=== PATIENT | female | born 1990 | race Two or more races ===

== ENCOUNTER 2018-06-16 13:44 | Outpatient (CLI) | payer OTHER | END 2018-06-16 13:45 | disposition home or self-care (01) | LOC: SC 13:44 | PROVIDERS: ATTEND Internal Medicine Pulmonary Disease | DX: G47.10 Hypersomnia, unspecified (principal) | CPT/HCPCS: 99203; 99212 ==

== ENCOUNTER 2019-06-09 13:43 | Emergency (ER) | payer OTHER ==
--- NOTE | 2019-06-09 14:51 | XRAY Report ---
Reason: trauma Procedure Date: 06/09/2019 Accession Number: [id number] / [id number] Procedure: XR - Wrist 3 View LT CPT Code: FULL RESULT: EXAM: LEFT WRIST RADIOGRAPHY EXAM DATE: 06/09/2019 02:37 PM. CLINICAL HISTORY: Trauma. COMPARISON: None. TECHNIQUE: 3 views. FINDINGS: Bones: No fractures or bone lesions. Joints: Unremarkable. Soft Tissues: Unremarkable. IMPRESSION: 1. No acute osseous abnormality. If there is snuff box tenderness, or clinical suspicion of radiographically occult scaphoid fracture, immobilization with repeat radiograph in 7-10 days, or alternatively MR, is recommended. RADIA
--- NOTE | 2019-06-09 15:19 | XRAY Report ---
Reason: trauma Procedure Date: 06/09/2019 Accession Number: [id number] / [id number] Procedure: XR - Knee 3 View LT CPT Code: FULL RESULT: EXAM: LEFT KNEE RADIOGRAPHY EXAM DATE: 06/09/2019 02:40 PM. CLINICAL HISTORY: Trauma. COMPARISON: None. TECHNIQUE: 3 views. FINDINGS: Bones: No fractures or bone lesions. Joints: Unremarkable. Soft Tissues: Unremarkable. IMPRESSION: 1. No acute osseous abnormality. RADIA
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
[2019-06-09] MEDS ORDERED: ACETAMINOPHEN 325 MG TABLET PO STA (15:55)
--- NOTE | 2019-06-09 16:48 | XRAY Report ---
Reason: lower anterior calf pain Procedure Date: 06/09/2019 Accession Number: [id number] / [id number] Procedure: XR - Tib/Fib LT CPT Code: FULL RESULT: EXAM: LEFT TIBIA/FIBULA RADIOGRAPHY EXAM DATE: 06/09/2019 03:08 PM. CLINICAL HISTORY: Lower anterior calf pain. COMPARISON: None. TECHNIQUE: 2 views. FINDINGS: Bones: Normal. No fracture or bone lesion. Joints: The visualized knee and ankle joints are normal. No effusions. Soft Tissues: Unremarkable. IMPRESSION: Normal tibia/fibula radiography. RADIA
[2019-06-09 17:15] VITALS: BP 101/66
== END 2019-06-09 17:18 | disposition home or self-care (01) ==
LOC: ED 13:43
DX: S60.012A Contusion of left thumb without damage to nail, initial encounter (principal); S60.222A Contusion of left hand, initial encounter; S80.02XA Contusion of left knee, initial encounter; S80.12XA Contusion of left lower leg, initial encounter; V28.2XXA Unspecified motorcycle rider injured in noncollision transport accident in nontraffic accident, initial encounter; Y93.89 Activity, other specified
CPT/HCPCS: 73110; 73562; 73590; 99282; 99284; A9270

== ENCOUNTER 2019-07-29 11:49 | Emergency (ER) | payer OTHER ==
[2019-07-29] MEDS ORDERED: SODIUM CHLORIDE 0.9% 1,000 ML IV ONE (12:15)
[2019-07-29] MEDS ORDERED: ONDANSETRON 4 MG/2 ML VIAL IVP STA ×2 (12:15→12:48)
--- NOTE | 2019-07-29 12:16 | ED Physician Documentation ---
PD HPI ABD PAIN - Stated complaint Stated Complaint: ABD PAIN - Chief complaint Chief Complaint: Abd Pain - History obtained from History obtained from: Patient - History of Present Illness Timing - onset: Today (28-year-old woman, active duty in the [employer]. She was in physical therapy for her shoulder this morning and developed lower abdominal pain and feeling of having to have a bowel movement. Subsequently she had a bowel movement and the pain improved but did not resolve. She is nauseous with it. Denies any bloody stools. Last menses was about July 01 and she is due. She is sexually active. She had chlamydia last month which was treated.) Review of Systems Ten Systems: 10 systems reviewed and negative Constitutional: denies: Fever, Chills Cardiac: denies: Chest pain / pressure, Palpitations Respiratory: denies: Dyspnea, Cough PD PAST MEDICAL HISTORY - Past Surgical History Ortho: Other - Present Medications Home Medications: Ambulatory Orders Medication Instructions Recorded Confirmed Hydrocodone/Acetaminophen 1 - 2 each PO Q6H PRN #7 tablet 07/29/19 [Hydrocodon-Acetaminophen 5-325] Ibuprofen [Motrin] 800 mg PO Q8H PRN #10 tablet 07/29/19 - Allergies Allergies/Adverse Reactions: Allergies Allergy/AdvReac Type Severity Reaction Status Date / Time No Known Drug Allergies Allergy Verified 06/09/19 13:48 - Social History Does the pt smoke?: No Smoking Status: Never smoker Does the pt drink ETOH?: Yes Does the pt have substance abuse?: No - Immunizations Immunizations are current?: Yes PD ED PE NORMAL - Vitals Vital signs reviewed: Yes - General General: Alert and oriented X 3, No acute distress - Cardiac Cardiac: RRR, No murmur - Respiratory Respiratory: No respiratory distress, Clear bilaterally - Abdomen Abdomen: Normal bowel sounds, Soft, Other (Tender in the left greater than right pelvis) - Back Back: No CVA TTP, No spinal TTP - Derm Derm: Normal color, Warm and dry - Extremities Extremities: No edema, No calf tenderness / cord - Neuro Neuro: Alert and oriented X 3, Normal speech Results - Vitals Vitals: Vital Signs - 24 hr 07/29/19 11:57 Temperature 36.5 C Heart Rate 79 Respiratory 18 Rate Blood Pressure 117/67 O2 Saturation 98 Oxygen O2 Source Room air - Labs Labs: Laboratory Tests 07/29/19 07/29/19 07/29/19 12:25 12:25 12:48 WBC 8.0 RBC 3.98 L Hgb 11.7 L Hct 37.5 MCV 94.2 MCH 29.4 MCHC 31.2 L RDW 11.5 L Plt Count 245 MPV 10.0 Neut # (Auto) 6.6 Lymph # (Auto) 0.8 L [place] # (Auto) 0.5 Eos # (Auto) 0.0 Baso # (Auto) 0.0 Absolute Nucleated RBC 0.00 Nucleated RBC % 0.0 Sodium 138 Potassium 3.9 Chloride 108 Carbon Dioxide 21 Anion Gap 9.0 BUN 15 Creatinine 0.8 Estimated GFR (MDRD) 102 Glucose 100 Calcium 8.9 Total Bilirubin 2.1 H AST 20 ALT 12 Alkaline Phosphatase 32 L Total Protein 7.4 Albumin 4.3 Globulin 3.1 Albumin/Globulin Ratio 1.4 Lipase 33 Urine Color DARK YELLOW Urine Clarity CLOUDY Urine pH 6.0 Ur Specific [place] 1.025 Urine Protein 30 H Urine Glucose (UA) NEGATIVE Urine Ketones 15 H Urine Occult Blood LARGE H Urine Nitrite NEGATIVE Urine Bilirubin SMALL H Urine Urobilinogen 0.2 (NORMAL) Ur Leukocyte Esterase NEGATIVE Urine RBC TNTC H Urine WBC 4-5 Ur Squamous Epith Cells MOD Squamous H Urine Bacteria Few Urine Mucus Few Strands Ur Microscopic Review INDICATED Urine Culture Comments NOT INDICATED Urine HCG, Qual NEGATIVE PD MEDICAL DECISION MAKING - ED course ED course: 28-year-old woman who is due for her menses presents with pelvic pain and cramping starting today. On repeat examination at 1:30 PM she was nontender. Labs are reassuring. Departure - Departure Disposition: 01 Home, Self Care Clinical Impression: Abdominal pain Condition: Good Record reviewed to determine appropriate education?: Yes Instructions: ED Abdominal Pain Appendx Poss Prescriptions: Hydrocodone/Acetaminophen [Hydrocodon-Acetaminophen 5-325] 1 - 2 each PO Q6H PRN #7 tablet PRN Reason: pain Ibuprofen [Motrin] 800 mg PO Q8H PRN #10 tablet PRN Reason: PAIN &/OR FEVER Comments: Return in 24 hours if not better, anytime if worse or if new symptoms develop. Forms: Activity restrictions
[2019-07-29 12:35] LABS: BASOPHILS % (AUTO) 0.3 %; EOSINOPHILS % (AUTO) 0.1 %; HGB - HEMOGLOBIN 11.7 g/dL (12.0-16.0); LYMPHOCYTES # (AUTO) 0.8 10^3/uL (1.5-3.5); LYMPHOCYTES % (AUTO) 10.5 %; MEAN CORPUSCULAR HEMOGLOBIN 29.4 pg (27.0-31.0); MEAN CORPUSCULAR HGB CONC 31.2 g/dL (32.0-36.0); MEAN CORPUSCULAR VOLUME 94.2 fL (81.0-99.0); MONOCYTES # (AUTO) 0.5 10^3/uL (0.0-1.0); MONOCYTES % (AUTO) 6.5 %; NEUTROPHILS # (AUTO) 6.6 10^3/uL (1.5-6.6); NEUTROPHILS % (AUTO) 82.2 %; PLT - PLATELET COUNT 245 10^3/uL (130-450); RED BLOOD COUNT 3.98 10^6/uL (4.20-5.40); RED CELL DISTRIBUTION WIDTH 11.5 % (12.0-15.0)
[2019-07-29] MEDS ORDERED: MORPHINE 2 MG/ML CARPUJECT IVP STA (12:48)
[2019-07-29 12:55] LABS: ALBUMIN 4.3 g/dL (3.2-5.5); ALBUMIN/GLOBULIN RATIO 1.4 (1.0-2.2); BILIRUBIN,TOTAL 2.1 mg/dL (0.2-1.0); CALCIUM 8.9 mg/dL (8.5-10.3); CREATININE 0.8 mg/dL (0.4-1.0); TOTAL PROTEIN 7.4 g/dL (6.7-8.2)
[2019-07-29 13:15] LABS: GLUCOSE, URINE (UA) NEGATIVE (NEGATIVE); KETONES,URINE (UA) 15 mg/dL (NEGATIVE); LEUKOCYTE ESTERASE, URINE NEGATIVE (NEGATIVE); NITRITE,URINE NEGATIVE (NEGATIVE); OCCULT BLOOD,URINE LARGE (NEGATIVE); PROTEIN,URINE 30 mg/dL (NEGATIVE); UROBILINOGEN,URINE 0.2 (NORMAL) E.U./dL (NORMAL)
[2019-07-29 13:20] LABS: BILIRUBIN,URINE SMALL (NEGATIVE); CLARITY,URINE CLOUDY (CLEAR); HCG UR QUAL NEGATIVE; ICTOTEST,URINE POSITIVE
[2019-07-29 13:25] LABS: BACTERIA,URINE Few /HPF (None Seen); MUCUS,URINE Few Strands; RBC,URINE TNTC /HPF (0-5); SQUAMOUS EPITHELIAL CELL,UR MOD Squamous (<= Few)
[2019-07-29 13:49] VITALS: BP 121/68
[2019-07-29 21:34] LABS: TRICHOMONAS VAGINALIS DNA NEGATIVE (NEGATIVE)
== END 2019-07-29 13:50 | disposition home or self-care (01) ==
LOC: EDUNIT# → ED 11:49
DX: R10.30 Lower abdominal pain, unspecified (principal)
CPT/HCPCS: 36415; 80053; 81001; 81003; 81025; 83690; 85025; 87086; 87491; 87591; 87661; 96374; 96375; 99284

== ENCOUNTER 2019-07-31 12:13 | Emergency (ER) | payer OTHER ==
[2019-07-31 13:25] LABS: BASOPHILS % (AUTO) 0.5 %; EOSINOPHILS % (AUTO) 0.5 %; HGB - HEMOGLOBIN 11.6 g/dL (12.0-16.0); LYMPHOCYTES # (AUTO) 1.2 10^3/uL (1.5-3.5); LYMPHOCYTES % (AUTO) 28.5 %; MEAN CORPUSCULAR HEMOGLOBIN 29.1 pg (27.0-31.0); MEAN CORPUSCULAR HGB CONC 31.2 g/dL (32.0-36.0); MEAN CORPUSCULAR VOLUME 93.2 fL (81.0-99.0); MEAN PLATELET VOLUME 9.6 fL (7.9-10.8); MONOCYTES # (AUTO) 0.4 10^3/uL (0.0-1.0); MONOCYTES % (AUTO) 9.3 %; NEUTROPHILS # (AUTO) 2.6 10^3/uL (1.5-6.6); PLT - PLATELET COUNT 293 10^3/uL (130-450); RED BLOOD COUNT 3.99 10^6/uL (4.20-5.40); RED CELL DISTRIBUTION WIDTH 11.6 % (12.0-15.0); WHITE BLOOD COUNT 4.2 x10^3/uL (4.8-10.8)
[2019-07-31 13:46] LABS: ALBUMIN 4.5 g/dL (3.2-5.5); ALBUMIN/GLOBULIN RATIO 1.5 (1.0-2.2); CREATININE 0.8 mg/dL (0.4-1.0); TOTAL PROTEIN 7.5 g/dL (6.7-8.2)
[2019-07-31 14:47] LABS: BILIRUBIN,URINE NEGATIVE (NEGATIVE); GLUCOSE, URINE (UA) NEGATIVE (NEGATIVE); KETONES,URINE (UA) NEGATIVE (NEGATIVE); LEUKOCYTE ESTERASE, URINE NEGATIVE (NEGATIVE); NITRITE,URINE NEGATIVE (NEGATIVE); OCCULT BLOOD,URINE LARGE (NEGATIVE); PH,URINE 6.5 PH (5.0-7.5); PROTEIN,URINE NEGATIVE (NEGATIVE); UROBILINOGEN,URINE 1 (NORMAL) E.U./dL (NORMAL)
[2019-07-31 15:17] LABS: CLARITY,URINE CLEAR (CLEAR); HCG UR QUAL NEGATIVE
[2019-07-31 15:18] LABS: BACTERIA,URINE Rare /HPF (None Seen); MUCUS,URINE Few Strands; RBC,URINE TNTC /HPF (0-5); SQUAMOUS EPITHELIAL CELL,UR FEW Squamous (<= Few)
--- NOTE | 2019-07-31 15:55 | ED Physician Documentation ---
History of Present Illness - Stated complaint Stated Complaint: abd pain - Chief complaint Chief Complaint: Abd Pain - Additonal information Additional information: This is a 28-year-old female who presents with some abdominal discomfort. Polina ent last week has had some bilateral lower abdominal cramping which has been somewhat waxing and waning. She was seen last week and had a reportedly unremarkable work-up, she was sent home and told to come back if things are not worsening. Today she been having some more cramping. She also has had some continued vaginal bleeding which she states is a start of her period. She did have an STI which was treated successfully a month ago. She denies vaginal itching or burning. No upper abdominal discomfort, no vomiting. She has been able to eat. No dysuria. Review of Systems Constitutional: denies: Fever Cardiac: denies: Chest pain / pressure Respiratory: denies: Dyspnea GI: reports: Abdominal Pain : denies: Dysuria Skin: denies: Rash Neurologic: denies: Generalized weakness Immunocompromised: denies: Immunocompromised PD PAST MEDICAL HISTORY - Past Surgical History Ortho: Other - Present Medications Home Medications: Ambulatory Orders Medication Instructions Recorded Confirmed Hydrocodone/Acetaminophen 1 - 2 each PO Q6H PRN #7 tablet 07/29/19 [Hydrocodon-Acetaminophen 5-325] Ibuprofen [Motrin] 800 mg PO Q8H PRN #10 tablet 07/29/19 - Allergies Allergies/Adverse Reactions: Allergies Allergy/AdvReac Type Severity Reaction Status Date / Time No Known Drug Allergies Allergy Verified 07/31/19 12:19 - Social History Does the pt smoke?: No Smoking Status: Never smoker Does the pt drink ETOH?: Yes Does the pt have substance abuse?: No - Immunizations Immunizations are current?: Yes PD ED PE NORMAL - Vitals Vital signs reviewed: Yes - General General: Alert and oriented X 3 - HEENT HEENT: Atraumatic - Neck Neck: Supple, no meningeal sign - Cardiac Cardiac: RRR - Respiratory Respiratory: No respiratory distress, Clear bilaterally - Abdomen Abdomen: Normal bowel sounds, Soft, Non distended, Other (Mild LLQ Tenderness, very mild right lower quadrant tenderness. No guarding. No upper abdominal discomfort with deep palpation) - Derm Derm: Normal color - Extremities Extremities: No deformity - Neuro Neuro: Alert and oriented X 3 Results - Vitals Vitals: Vital Signs - 24 hr 07/31/19 20:10 Heart Rate 75 Respiratory 18 Rate Blood Pressure 113/76 O2 Saturation 99 Oxygen O2 Source Room air - Labs Labs: Laboratory Tests 07/31/19 07/31/19 07/31/19 12:45 12:46 13:15 WBC 4.2 L RBC 3.99 L Hgb 11.6 L Hct 37.2 MCV 93.2 MCH 29.1 MCHC 31.2 L RDW 11.6 L Plt Count 293 MPV 9.6 Neut # (Auto) 2.6 Lymph # (Auto) 1.2 L [place] # (Auto) 0.4 Eos # (Auto) 0.0 Baso # (Auto) 0.0 Absolute Nucleated RBC 0.00 Nucleated RBC % 0.0 Sodium Potassium Chloride Carbon Dioxide Anion Gap BUN Creatinine Estimated GFR (MDRD) Glucose Calcium Total Bilirubin AST ALT Alkaline Phosphatase Total Protein Albumin Globulin Albumin/Globulin Ratio Lipase Urine Color YELLOW Urine Clarity CLEAR Urine pH 6.5 Ur Specific [place] 1.015 Urine Protein NEGATIVE Urine Glucose (UA) NEGATIVE Urine Ketones NEGATIVE Urine Occult Blood LARGE H Urine Nitrite NEGATIVE Urine Bilirubin NEGATIVE Urine Urobilinogen 1 (NORMAL) Ur Leukocyte Esterase NEGATIVE Urine RBC TNTC H Urine WBC 4-5 Ur Squamous Epith Cells FEW Squamous Urine Bacteria Rare Urine Mucus Few Strands Ur Microscopic Review INDICATED Urine Culture Comments NOT INDICATED Urine HCG, Qual NEGATIVE Chlam trachomat DNA PCR NEGATIVE N.gonorrhoeae DNA (PCR) NEGATIVE T. vaginalis (PCR) NEGATIVE 07/31/19 13:15 WBC RBC Hgb Hct MCV MCH MCHC RDW Plt Count MPV Neut # (Auto) Lymph # (Auto) [place] # (Auto) Eos # (Auto) Baso # (Auto) Absolute Nucleated RBC Nucleated RBC % Sodium 138 Potassium 4.3 Chloride 105 Carbon Dioxide 26 Anion Gap 7.0 BUN 8 Creatinine 0.8 Estimated GFR (MDRD) 102 Glucose 94 Calcium 9.0 Total Bilirubin 2.0 H AST 18 ALT 12 Alkaline Phosphatase 35 L Total Protein 7.5 Albumin 4.5 Globulin 3.0 Albumin/Globulin Ratio 1.5 Lipase 34 Urine Color Urine Clarity Urine pH Ur Specific [place] Urine Protein Urine Glucose (UA) Urine Ketones Urine Occult Blood Urine Nitrite Urine Bilirubin Urine Urobilinogen Ur Leukocyte Esterase Urine RBC Urine WBC Ur Squamous Epith Cells Urine Bacteria Urine Mucus Ur Microscopic Review Urine Culture Comments Urine HCG, Qual Chlam trachomat DNA PCR N.gonorrhoeae DNA (PCR) T. vaginalis (PCR) - Rads (name of study) US pelvic Radiology: Other (Normal ovarian size, good arterial and venous blood flow in both ovaries, no signs of torsion. There is a complex cyst in the right ovary which may be corpus luteum or hemorrhagic cyst up to 2.2 cm in maximum diameter. There is trace free fluid in the low pelvis.) RLq US Radiology: Other (Appendix not definitely imaged, there are no secondary signs of appendicitis) PD MEDICAL DECISION MAKING - ED course Complexity details: considered differential (Torsion, appendicitis, UTI, STI, TOA, dysmenorrhea) ED course: This is a 28 year old female who is very well-appearing presenting with lower abdominal cramping. She is currently on her period. Labs show a stable anemia, and borderline leukopenia which is very close to normal range. She has unremarkable vital signs. CMP unrevaling. HCG negative. UA negative for infection. Pelvic US shows a hemorrhagic cyst, no torsion, and RLQ US shows no signs of appendicitis, she also does not have guarding, vomiting, fever, or reproduciple RLQ tenderness that would be highly concerning for appendicitis. I discussed with her that given her labs and imaging I think it is reasonable that she use supportive care and follow closely with her PCP, and return within 24 hours for a recheck if she is having symptoms concerning for appendicitis, which I reviewed in depth. More likely this is dysmenorrhea or pain for the ovarian cyst. Pt agrees and was discharged home. Departure - Departure Disposition: 01 Home, Self Care Clinical Impression: Abdominal pain Condition: Good Instructions: ED Abdominal Pain Unkn Cause Comments: You were seen today for abdominal pain. We do not see signs of appendicitis or urinary tract infection on your labs today. You do have a cyst on your ovary that has some bleeding, this may be the cause of your pain. You may need a follow-up ultrasound in the future to check for resolution of the cyst. You may take Tylenol and ibuprofen for your discomfort, rest, and follow-up with your primary care provider or OB. If you develop worsening abdominal pain, particularly pain that is associated with vomiting and/or is in the right lower part of her abdomen like we talked about, return for a recheck. Discharge Date/Time: 07/31/19 20:11
--- NOTE | 2019-07-31 18:11 | Ultrasound Report ---
Reason: assess for appendicitis Procedure Date: 07/31/2019 Accession Number: [id number] / [id number] Procedure: US - Abdomen Limited CPT Code: Final Report FULL RESULT: EXAM: ABDOMEN ULTRASOUND LIMITED EXAM DATE: 07/31/2019 05:02 PM. CLINICAL HISTORY: Assess for appendicitis. COMPARISON: None. TECHNIQUE: Real-time scanning was performed with static images obtained. FINDINGS: The appendix is not seen. Patient tolerated marked compression. No enlarged lymph nodes. No right lower quadrant simple or complex free fluid. No thickened bowel loops. IMPRESSION: 1. Appendix not visualized. No positive secondary signs of acute appendicitis. RADIA
--- NOTE | 2019-07-31 18:24 | Ultrasound Report ---
Reason: Pelvic pain, assess for TOA/torsion Procedure Date: 07/31/2019 Accession Number: [id number] / [id number] Procedure: US - Pelvic w/Transvag+Doppler Ltd CPT Code: Final Report FULL RESULT: EXAM: PELVIC ULTRASOUND WITH DOPPLERS CLINICAL HISTORY: Pelvic pain, assess for TOA/torsion. COMPARISON: None. TECHNIQUE: Realtime transabdominal imaging performed to identify the uterus and adnexa and as an overview of other pelvic structures, followed by transvaginal imaging for better assessment of the endometrium and adnexa, with static image documentation. Color flow imaging and Doppler spectral analysis was performed to evaluate blood flow to the ovaries given pelvic pain and clinical concern for ovarian torsion. FINDINGS: Uterus: 7.2 x 4.1 x 4.0 cm, volume 61 cc. Retroverted position. Normal overall size and echotexture. Masses: None. Endometrium: 6 mm. There is mobile complex fluid in the endometrial canal. Cervix: Unremarkable. Right Ovary: 3.4 x 3.1 x 3.4 cm, volume 18.9 cc. There is a complex cyst in the right ovary measuring 1.2 x 1.3 x 2.2 cm. Arterial and venous blood flow are present. PSV 9.5 cm/sec. RI 0.7. Adnexa are unremarkable. Left Ovary: 4.2 x 1.8 x 2.1 cm, volume 8.2 cc. Normal echotexture. Arterial and venous blood flow are present. PSV 5.5 cm/sec. RI 0.7. Adnexa are unremarkable. Free Fluid: Trace Other: None. IMPRESSION: 1. Both ovaries are normal in size. Arterial and venous blood flow identified in both ovaries without findings of torsion. 2. Complex cyst in right ovary. Possible corpus luteum or hemorrhagic cyst measuring 2.2 cm in maximum diameter. 3. Trace free fluid in the low pelvis. RADIA
[2019-07-31 20:03] LABS: TRICHOMONAS VAGINALIS DNA NEGATIVE (NEGATIVE)
[2019-07-31 20:10] VITALS: BP 113/76
== END 2019-07-31 20:11 | disposition home or self-care (01) ==
LOC: ED 12:13
DX: R10.9 Unspecified abdominal pain (principal); N83.201 Unspecified ovarian cyst, right side
CPT/HCPCS: 36415; 76705; 76830; 76856; 80053; 81001; 81003; 81025; 83690; 85025; 87086; 87491; 87591; 87661; 93976; 99283; 99284

== ENCOUNTER 2021-05-24 05:35 | Emergency (ER) | payer OTHER ==
[2021-05-24 05:43] VITALS: BP 126/82
--- NOTE | 2021-05-24 06:24 | ED Physician Documentation ---
History of Present Illness - Stated complaint Stated Complaint: THROAT SWELLING,FACE TINGLE - Chief complaint Chief Complaint: General - History obtained from History obtained from: Patient - Additonal information Additional information: Patient comes emergency department chief complaint of not feeling good after Moderna vaccine. Patient states she got her second shot yesterday. Pt states that since, she has noticed body aches, chills, headache and a sense of a sore/swollen throat. She denies any itchy rash or difficulty breathing. She has had a slight tingling sensation on her cheeks. Patient states that she called the nurse hotline through the [facility] and was told to come here. No other complaints at this time. Review of Systems Ten Systems: 10 systems reviewed and negative Constitutional: reports: Reviewed and negative Eyes: reports: Reviewed and negative Ears: reports: Reviewed and negative Nose: reports: Reviewed and negative Throat: reports: Reviewed and negative Cardiac: reports: Reviewed and negative Respiratory: reports: Reviewed and negative GI: reports: Reviewed and negative : reports: Reviewed and negative Skin: reports: Reviewed and negative Musculoskeletal: reports: Reviewed and negative Neurologic: reports: Reviewed and negative Psychiatric: reports: Reviewed and negative Endocrine: reports: Reviewed and negative Immunocompromised: reports: Reviewed and negative PD PAST MEDICAL HISTORY - Past Medical History Past Medical History: Yes Cardiovascular: None Respiratory: None Neuro: None Endocrine/Autoimmune: None GI: None LADLE PULLER: None : None HEENT: None Psych: None Musculoskeletal: None Derm: None Other Past Medical History: G6PD - Past Surgical History Past Surgical History: Yes Ortho: Other - Present Medications Home Medications: Ambulatory Orders Medication Instructions Recorded Confirmed Norelgestromin/Ethin.estradiol 1 each TD TIDWM 05/24/21 05/24/21 [Xulane 150-35 Mcg/Day Patch] - Allergies Allergies/Adverse Reactions: Allergies Allergy/AdvReac Type Severity Reaction Status Date / Time No Known Drug Allergies Allergy Verified 05/24/21 05:43 - Social History Does the pt smoke?: No Smoking Status: Never smoker Does the pt drink ETOH?: Yes Does the pt have substance abuse?: No - Immunizations Immunizations are current?: Yes - POLST Patient has POLST: No PD ED PE NORMAL - Vitals Vital signs reviewed: Yes - General General: Alert and oriented X 3, No acute distress - HEENT HEENT: Atraumatic, PERRL, EOMI, Moist mucous membranes, Pharynx benign - Neck Neck: Supple, no meningeal sign - Cardiac Cardiac: RRR, No murmur - Respiratory Respiratory: No respiratory distress, Clear bilaterally - Abdomen Abdomen: Normal bowel sounds, Soft, Non tender, Non distended - Derm Derm: Warm and dry - Extremities Extremities: No deformity - Neuro Neuro: Alert and oriented X 3 - Psych Psych: Normal mood, Normal affect Results - Vitals Vitals: Vital Signs - 24 hr 05/24/21 05:38 Temperature 36.3 C L Heart Rate 84 Respiratory 18 Rate Blood Pressure 126/82 H O2 Saturation 100 Oxygen O2 Source Room air PD MEDICAL DECISION MAKING - ED course Complexity details: considered differential, d/w patient ED course: No evidence of an emergent condition. No evidence of an allergic reaction. I d/w pt that her sx are consistent with typical post-vaccination sx, and will be self-limited. We have discussed the usual indications for return. Departure - Departure Disposition: 01 Home, Self Care Clinical Impression: Adverse effect of COVID-19 vaccine Condition: Stable Instructions: ED Drug React Adverse Other Comments: Your symptoms are consistent with what many people experience after the covid vaccine, especially the second shot. The symptoms should subside in 1-3 days after the vaccine. In the meantime, you may use ibuprofen and Tylenol to help with the discomforts. Additionally, please get plenty of rest and water to drink. If you develop an itchy rash or progressively swollen tongue/throat that makes it hard to breathe, you should be re-evaluated immediately. Discharge Date/Time: 05/24/21 06:35
== END 2021-05-24 06:35 | disposition home or self-care (01) ==
LOC: ED 05:35
DX: R07.0 Pain in throat (principal); R50.9 Fever, unspecified; T50.B95A Adverse effect of other viral vaccines, initial encounter
CPT/HCPCS: 99281; 99284